=== PATIENT | male | born 1965 | race Caucasian/White ===

== ENCOUNTER 2023-06-01 17:39 | Inpatient (IN) ==
[2023-06-01 18:53] LABS: Albumin Globulin Ratio 1.3 (0.9-2); Albumin Level 4.1 gm/dl (3.4-5.0); BUN Creatinine Ratio 23.6 (10-20); Bilirubin,Total 0.3 mg/dl (0.2-1.0); Calcium 9.1 mg/dl (8.6-10.3); Creatinine Clr Calc Pharmacy 118.8 ml/min; Est GFR (African American) 107.7 ml/min; Est GFR (Non-African American) 92.9 ml/min; Globulin 3.1 gm/dl (2.5-4.0); Hematocrit (blood only) 22.5 % (42.0-52.0); Mean Corpuscular Hemoglobin 39.2 pg (25.0-34.0); Mean Corpuscular Hgb Conc 35.6 g/dL (32.0-36.0); Mean Corpuscular Volume 110.3 fL (80.0-100.0); Mean Platelet Volume 11.4 fL (9.4-12.4); Nucleated RBC # (auto) 0.03 K/uL (0-0.12); Nucleated RBC % (auto) 0.3 %; Platelet Count 95 K/uL (130-400); Potassium 3.7 mmol/L (3.5-5.1); RDW Coefficient of Variation 17.2 % (11.5-14.5); RDW Standard Deviation 68.7 fL (36.4-46.3); Red Blood Count 2.04 M/uL (4.70-6.10); Total Protein 7.2 gm/dl (6.0-8.3); White Blood Count 10.67 K/ul (4.8-10.8)
--- NOTE | 2023-06-01 18:55 | XRay Report ---
XR chest 1V portable HISTORY: Chest pain, nonspecific COMPARISON: None. FINDINGS: There are low lung volumes. No pneumothorax. No pleural effusions. The cardiac silhouette i s normal in size. The lungs are clear. No evidence for pulmonary edema. No acute fractures identified . IMPRESSION: No acute process. ACT 112: Negative or not required by law. Electronically signed by: Mark Meyer M.D. 06/01/2023 6:54 PM
--- NOTE | 2023-06-01 19:43 | History & Physical Report ---
Date of Service June 01, 2023 Assessment & Plan (1) Anemia: (2) Thrombocytopenia: History of Present Illness Primary Care Provider: NO PCP 58 year old male with a past medical history of HLD, HTN, GERD, OA knees B/L left knee memsis right shoulder rotaor gallbladder low blood count 2-3 months ago - PCP -> [facility], [facility] - check up at end of colonscopy 7 years ago -> 10 years cough x few months (lisinpirl) dyenspa, burning pressure on chest exercising fatigued short Allergies Allergy/AdvReac Type Severity Reaction Status Date / Time No Known Allergies Allergy Unverified 05/26/13 10:27 Home Medications Medication Instructions Recorded Confirmed Type acetaminophen 650 mg 650 mg PO DAILY 06/01/23 06/01/23 History tablet,extended release atorvastatin 10 mg tablet 10 mg PO QPM 06/01/23 06/01/23 History lisinopril 10 mg tablet 10 mg PO QAM 06/01/23 06/01/23 History pantoprazole 20 mg tablet,delayed 20 mg PO QAM 06/01/23 06/01/23 History release Past Med/Surg History Social History Smoking Status: Never smoker Feels Safe at Home: Yes Review of Systems Review of Systems: As per above Results & Data Results & Data Vital Signs (Past 12 Hours) Vital Signs Temp Pulse Resp BP Pulse Ox O2 Del Method 06/01/23 18:11 85 06/01/23 18:09 96 Room Air 06/01/23 18:07 84 17 96 Room Air 06/01/23 17:49 36.6 C 88 20 152/72 H 96 Room Air
--- NOTE | 2023-06-01 19:47 | Emergency Department Note ---
History of Present Illness General Chief complaint: Cardiac Assessment Stated complaint: LOW BLOOD COUNT, SOB Time Seen by Provider: 06/01/23 17:57 History of Present Illness Provider complaint: Low blood counts 58-year-old male with history of hypertension hyperlipidemia and GERD presents emergency department stating he was referred here by his primary care physician for low blood counts. Patient reports he has not had any fevers. He reports some fatigue and chest pain with exertion. He also reports dyspnea on exertion. No melena or hematochezia. No hematuria dysuria. No fevers. Home Medications Medication Instructions Recorded Confirmed Type acetaminophen 650 mg 650 mg PO DAILY 06/01/23 06/01/23 History tablet,extended release atorvastatin 10 mg tablet 10 mg PO QPM 06/01/23 06/01/23 History lisinopril 10 mg tablet 10 mg PO QAM 06/01/23 06/01/23 History pantoprazole 20 mg tablet,delayed 20 mg PO QAM 06/01/23 06/01/23 History release Allergies Allergy/AdvReac Type Severity Reaction Status Date / Time No Known Allergies Allergy Unverified 05/26/13 10:27 Past Med/Surg History Medical History GERD (gastroesophageal reflux disease) HLD (hyperlipidemia) HTN (hypertension) No pertinent family history Surgical History (Updated 06/01/23 @ 22:22 by Sandra Mccann DO) H/O lateral meniscus repair of left knee H/O repair of right rotator cuff History of cholecystectomy No pertinent past surgical history Social History (Updated 06/01/23 @ 22:23 by Sandra Mccann DO) Smoking Status: Never smoker Hx Alcohol Use: No Hx Substance Use: No Preferred Language: Mongolian Communication Ability: Effective Levee Superintendent Required: No Beliefs That Will Affect Care: None Current Living Situation: Spouse Current Living Situation Comment: With Other Information That Helps Us Care for You: No Feels Safe at Home: Yes Safety Concerns: Feels Safe At This Time Assistive Devices: None Physical Exam Vital Signs Vital Signs - 24 hr 06/01/23 17:49 06/01/23 18:07 06/01/23 18:09 Temperature 36.6 C Temperature Source Temporal Artery Scan Pulse Rate 88 84 Pulse Rate [Apical] Respiratory Rate 20 17 Respiratory Effort / Characteristics Non-Labored Respiratory Depth Normal Blood Pressure 152/72 H Blood Pressure [Right Arm] Blood Pressure Mean 98 Blood Pressure Mean [Right Arm] Pulse Oximetry 96 96 96 Oxygen Delivery Method Room Air Room Air Room Air Sepsis Recent Fever Within 48 Hours No Sepsis New/Unexplained Change in Mental Status No Sepsis Action Taken by Nursing No Action Required 06/01/23 18:11 06/01/23 19:01 06/01/23 20:15 Temperature Temperature Source Pulse Rate 85 Pulse Rate [Apical] 92 H 86 Respiratory Rate 16 16 Respiratory Effort / Characteristics Respiratory Depth Blood Pressure Blood Pressure [Right Arm] 119/58 L 140/71 Blood Pressure Mean Blood Pressure Mean [Right Arm] 78 94 Pulse Oximetry 98 96 Oxygen Delivery Method Room Air Room Air Sepsis Recent Fever Within 48 Hours Sepsis New/Unexplained Change in Mental Status Sepsis Action Taken by Nursing 06/01/23 21:01 Temperature Temperature Source Pulse Rate Pulse Rate [Apical] 81 Respiratory Rate 16 Respiratory Effort / Characteristics Respiratory Depth Blood Pressure Blood Pressure [Right Arm] 115/79 Blood Pressure Mean Blood Pressure Mean [Right Arm] 91 Pulse Oximetry 96 Oxygen Delivery Method Room Air Sepsis Recent Fever Within 48 Hours Sepsis New/Unexplained Change in Mental Status Sepsis Action Taken by Nursing Physical Exam GENERAL: He is oriented to person, place, and time. He appears well-developed and well-nourished. He does not appear distressed. HENT: Exam performed. - Head: Normocephalic and atraumatic. - Right Ear: External ear normal. No mastoid erythema - Left Ear: External ear normal. No mastoid erythema - Mouth/Throat: The oropharynx is clear and moist. No trismus in the jaw. No dental abscesses or uvula swelling. No oropharyngeal exudate or tonsillar abscesses. EYES: Conjunctivae and EOM are normal. Pupils are equal, round, and reactive to light. Right eye exhibits no discharge. Left eye exhibits no discharge. No scler al icterus. NECK: Normal range of motion. Neck supple. No JVD present. No spinous process tenderness present. No carotid bruit present. No rigidity. No tracheal deviation and normal range of motion present. No Brudzinski's sign and no Kernig's sign noted. CV: Normal rate, regular rhythm, normal heart sounds and intact distal pulses. There is no peripheral edema. Palpable radial pulses bue. PULM/CHEST: Effort normal and breath sounds normal. No respiratory distress. No stridor. He has no wheezes. He has no rales. - Chest Wall: He exhibits no tenderness. ABD: The abdomen is soft. Bowel sounds are normal. He has no distension. No mass is present. There is no tenderness. There is no rebound, no guarding, no Bueno's sign and no tenderness at McBurney's point. Rovsig negative. Rectal: Hemoccult negative. MUSC/SKEL: Normal range of motion. There is no peripheral edema, tenderness or deformity. LYMPH: No cervical adenopathy. NEURO: He is alert and oriented to person, place, and time. He has normal strength. No cranial nerve deficit or sensory deficit. Coordination and gait normal. GCS eye subscore is 4. GCS verbal subscore is 5. GCS motor subscore is 6. Cerebellar tests wnl. SKIN: Skin is warm and dry. He is not diaphoretic. PSYCH: He has a normal mood and affect. Behavior is normal. Judgment and thought content normal. Course Course 1756: The patient was evaluated in room A10. A complete history and physical exam was performed Cardiac monitoring: An order was placed for continuous cardiac monitoring. The monitor shows a rate of 90 with sinus rhythm interpreted by me 1915: Vital signs stable. Patient reports no chest pain or difficulty breathing. Hemoglobin of 8. Stable from outpatient labs which showed hemoglobin of 8.1. Platelet count 95 improved from platelet count of 85 outpatient. EKG chest x-ray troponin negative. Patient will be admitted to the [facility] service for chest pain rule out ACS. Dr. Art's team will be notified 1939: Received a call from Dr. Linda piper. She states they reviewed his blood smear and slides and stated there was one blast and 1 hour ride and she is suspicious that the patient could have myelodysplastic syndrome versus AML. She recommends discussing with hematology oncology. Hematology oncology will be paged. 1949: Spoke with Dr. Pineda on-call hematology oncology. He states that the slides with the blast in our jacobo are suspicious for leukemia until proven otherwise. He recommends transfer to tertiary care center for bone marrow biopsy. 2027: Spoke with Dr. James oncology at [place]. He accepts the patient as a transfer and agrees that the patient needs a bone marrow biopsy to make sure that there is no evidence of AML given the Carmelo rods. The [facility] We will contact [facility] hospitalist to see if the patient can be admitted here until a bed is available at [place]. Patient is in agreement with the plan. 2114: Spoke with Dr. Art [facility] Hospitalist who will admit the patient to his service until a bed of is available at [place]. Medical Decision Making Laboratory Data Attestation: I reviewed the patient's lab results. 06/01/23 18:06 06/01/23 18:06 Lab Results 06/01/23 06/01/23 06/01/23 Range/Units 18:06 18:06 18:06 WBC 10.67 (4.8-10.8) K/ul RBC 2.04 L (4.70-6.10) M/uL Hgb 8.0 L (14.0-18.0) g/dl Hct 22.5 L (42.0-52.0) % MCV 110.3 H (80.0-100.0) fL MCH 39.2 H (25.0-34.0) pg MCHC 35.6 (32.0-36.0) g/dL RDW Std Deviation 68.7 H (36.4-46.3) fL RDW Coeff of Gabe 17.2 H (11.5-14.5) % Plt Count 95 L (130-400) K/uL MPV 11.4 (9.4-12.4) fL Absolute Nucleated RBC 0.03 (0-0.12) K/uL Nucleated RBC % (auto) 0.3 % Neutrophils % (Manual) 12 % Lymphocytes % (Manual) 51 % Monocytes % (Manual) 34 % Eosinophils % (Manual) 2 % Blast Cells % (Manual) 1 % Neutrophils # (Manual) 1.28 L (1.40-6.50) K/uL Total Absolute Neuts 1.28 L (1.4-6.5) K/uL Lymphocytes # (Manual) 5.44 H (1.2-3.4) K/uL Total Abs Lymphocytes 5.44 H (1.2-3.4) K/uL Monocytes # (Manual) 3.63 H (0.11-0.59) K/uL Eosinophils # (Manual) 0.21 (0-0.50) K/uL Blast Cells # (Man) 0.11 H (0-0) K/uL Sodium 140 (136-145) mmol/L Potassium 3.7 (3.5-5.1) mmol/L Chloride 107 (98-107) mmol/L Carbon Dioxide 27 (21-32) mmol/L Anion Gap 6 (3-11) BUN 21 (6-23) mg/dl Creatinine 0.89 (0.6-1.4) mg/dl Est Cr Clr Drug Dosing 118.8 ml/min Est GFR ( Amer) 107.7 ml/min Est GFR (Non-Af Amer) 92.9 ml/min BUN/Creatinine Ratio 23.6 H (10-20) Glucose 134 H (70-99(Fasting)) mg/dl Calcium 9.1 (8.6-10.3) mg/dl Total Bilirubin 0.3 (0.2-1.0) mg/dl AST 15 (13-39) U/L ALT 31 (7-52) U/L Alkaline Phosphatase 78 (34-104) U/L Troponin I High Sens 4.0 (0-20) pg/ml Total Protein 7.2 (6.0-8.3) gm/dl Albumin 4.1 (3.4-5.0) gm/dl Globulin 3.1 (2.5-4.0) gm/dl Albumin/Globulin Ratio 1.3 (0.9-2) Lipase 42 (11-82) U/L SARS-CoV-2, RNA, NAAT (NEGATIVE) Blood Type O Positive Antibody Screen NEGATIVE 06/01/23 Range/Units 20:00 WBC (4.8-10.8) K/ul RBC (4.70-6.10) M/uL Hgb (14.0-18.0) g/dl Hct (42.0-52.0) % MCV (80.0-100.0) fL MCH (25.0-34.0) pg MCHC (32.0-36.0) g/dL RDW Std Deviation (36.4-46.3) fL RDW Coeff of Gabe (11.5-14.5) % Plt Count (130-400) K/uL MPV (9.4-12.4) fL Absolute Nucleated RBC (0-0.12) K/uL Nucleated RBC % (auto) % Neutrophils % (Manual) % Lymphocytes % (Manual) % Monocytes % (Manual) % Eosinophils % (Manual) % Blast Cells % (Manual) % Neutrophils # (Manual) (1.40-6.50) K/uL Total Absolute Neuts (1.4-6.5) K/uL Lymphocytes # (Manual) (1.2-3.4) K/uL Total Abs Lymphocytes (1.2-3.4) K/uL Monocytes # (Manual) (0.11-0.59) K/uL Eosinophils # (Manual) (0-0.50) K/uL Blast Cells # (Man) (0-0) K/uL Sodium (136-145) mmol/L Potassium (3.5-5.1) mmol/L Chloride (98-107) mmol/L Carbon Dioxide (21-32) mmol/L Anion Gap (3-11) BUN (6-23) mg/dl Creatinine (0.6-1.4) mg/dl Est Cr Clr Drug Dosing ml/min Est GFR ( Amer) ml/min Est GFR (Non-Af Amer) ml/min BUN/Creatinine Ratio (10-20) Glucose (70-99(Fasting)) mg/dl Calcium (8.6-10.3) mg/dl Total Bilirubin (0.2-1.0) mg/dl AST (13-39) U/L ALT (7-52) U/L Alkaline Phosphatase (34-104) U/L Troponin I High Sens (0-20) pg/ml Total Protein (6.0-8.3) gm/dl Albumin (3.4-5.0) gm/dl Globulin (2.5-4.0) gm/dl Albumin/Globulin Ratio (0.9-2) Lipase (11-82) U/L SARS-CoV-2, RNA, NAAT NEGATIVE (NEGATIVE) Blood Type Antibody Screen Imaging Data Attestation: I personally reviewed and interpreted this imaging study as follows: My Impression: Chest x-ray negative. Airway clear. No pneumothorax. No consolidation. No cardiomegaly or cephalization.. No free air under the diaphragm. No fractures of the skeletal structures. Radiologist's Impression: Chest X-Ray 06/01/23 17:57 XR chest 1V portable HISTORY: Chest pain, nonspecific COMPARISON: None. FINDINGS: There are low lung volumes. No pneumothorax. No pleural effusions. The cardiac silhouette is normal in size. The lungs are clear. No evidence for pulmonary edema. No acute fractures identified. IMPRESSION: No acute process. ACT 112: Negative or not required by law. Electronically signed by: Mark Meyer M.D. 06/01/2023 6:54 PM ECG Data Attestation: I personally reviewed and interpreted this ECG as follows: Indication: + chest pain Rate (beats per minute): 86 Rhythm: + normal sinus ECG Intervals/blocks: + Normal QRS, + Normal CO and + Normal QT-c ECG ST segments: + Normal ST segments [facility] Narrative 175: The patient was evaluated in room A10. A complete history and physical exam was performed Cardiac monitoring: An order was placed for continuous cardiac monitoring. The monitor shows a rate of 90 with sinus rhythm interpreted by me 191: Vital signs stable. Patient reports no chest pain or difficulty breathing. Hemoglobin of 8. Stable from outpatient labs which showed hemoglobin of 8.1. Platelet count 95 improved from platelet count of 85 outpatient. EKG chest x-ray troponin negative. Patient will be admitted to the [facility] service for chest pain rule out ACS. Dr. Art's team will be notified 1939: Received a call from Dr. Linda piper. She states they reviewed his blood smear and slides and stated there was one blast and 1 hour ride and she is suspicious that the patient could have myelodysplastic syndrome versus AML. She recommends discussing with hematology oncology. Hematology oncology will be paged. 1949: Spoke with Dr. Pineda on-call hematology oncology. He states that the slides with the blast in our jacobo are suspicious for leukemia until proven otherwise. He recommends transfer to tertiary care center for bone marrow biopsy. 2027: Spoke with Dr. James oncology at [place]. He accepts the patient as a transfer and agrees that the patient needs a bone marrow biopsy to make sure that there is no evidence of AML given the Carmelo rods. The transfer center stated that there is likely not to be a bed available tonight. We will contact [facility] Hospitalist to see if the patient can be admitted here until a bed is available at [place]. Patient is in agreement with the plan. 2114: Spoke with Dr. Art [facility] hospitalist who will admit the patient to his service until a bed of is available at [place]. Impression & Plan Chest pain, Anemia, Thrombocytopenia Discharge Plan Visit Data Chief Complaint: Cardiac Assessment Stated Complaint: LOW BLOOD COUNT, SOB ED Provider: Kaveh Vee Discharge Problem: Chest pain, Anemia, Thrombocytopenia Patient Disposition: Admitted As Inpatient Discharge Instructions Interventions: ED Discharge Assessment Last Done: 06/01/23 22:22 Chest pain Qualifiers: Chest pain type: unspecified Qualified Code(s): R07.9 - Chest pain, unspecified
[2023-06-01 20:12] LABS: ALC (manual) 5.44 K/uL (1.2-3.4); ANC (manual) 1.28 K/uL (1.4-6.5); Blast # (manual) 0.11 K/uL (0-0); Blast Cells % (manual) 1 %; Eosinophils # (manual) 0.21 K/uL (0-0.50); Eosinophils % (manual) 2 %; Lymphocytes # (manual) 5.44 K/uL (1.2-3.4); Lymphocytes % (manual) 51 %; Monocytes # (manual) 3.63 K/uL (0.11-0.59); Monocytes % (manual) 34 %; Neutrophils # (manual) 1.28 K/uL (1.40-6.50); Neutrophils % (manual) 12 %
--- NOTE | 2023-06-01 22:07 | History & Physical Report ---
Date of Service June 01, 2023 Assessment & Plan (1) Anemia: Plan: Anemia/Thrombocytopenia - Blood smear concerning for myelodysplastic syndrome versus AML - hemodynamically stable - Plan to transfer to [place] when beds is available - continue to trend CBC Chest Pain/Dyspnea - Hemodynamically stable - EKG without ischemic changes - negative troponin - dyspnea could be secondary to anemia - could consider stress test in the future for exertional chest pain Chronic Cough - could be PABLO-I related; hold lisinopril - CT chest pending GERD - continue PPI HLD - continue statin (2) Thrombocytopenia: (3) HTN (hypertension): (4) HLD (hyperlipidemia): (5) GERD (gastroesophageal reflux disease): (6) Chest pain: (7) Chronic cough: History of Present Illness Primary Care Provider: NO PCP 58 year old male with a past medical history of HTN, HLD, GERD presenting with anemia. Had OP labs this morning and was told to his hemoglobin was low. States that he had a low hemoglobin a few months ago and these were follow up labs for an appointment later this month. Last colonoscopy about 7 years ago was normal. No blood in stool, melena, constipation, diarrhea, abdominal pain. Notes that he bikes regularly, did 4 miles this morning. Denies any active chest pain, does note some chest tightness in the past with exertion. Has noticed some increased dyspnea with exertion. Has a dry cough, that has gotten worse with the poor air quality. ED Course Significant For: Hemoglobin= 8, Platelets= 95, EKG without ischemic changes, troponin negative. CXR negative, bloo smear with blast cell and 1 aurerod. ED discussed with pathology and heme/onc concern for myelodysplastic syndrome versus AML. ED spoke with [facility] and pt is excepted. No beds until tomorrow. Allergies Allergy/AdvReac Type Severity Reaction Status Date / Time No Known Allergies Allergy Unverified 05/26/13 10:27 Home Medications Medication Instructions Recorded Confirmed Type acetaminophen 650 mg 650 mg PO DAILY 06/01/23 06/01/23 History tablet,extended release atorvastatin 10 mg tablet 10 mg PO QPM 06/01/23 06/01/23 History pantoprazole 20 mg tablet,delayed 20 mg PO QAM 06/01/23 06/01/23 History release Past Med/Surg History Medical History GERD (gastroesophageal reflux disease) HLD (hyperlipidemia) HTN (hypertension) No pertinent family history Surgical History (Updated 06/01/23 @ 22:22 by Sandra Mccann DO) H/O lateral meniscus repair of left knee H/O repair of right rotator cuff History of cholecystectomy No pertinent past surgical history Social History (Updated 06/01/23 @ 22:23 by Sandra Mccann DO) Smoking Status: Never smoker Hx Alcohol Use: No Hx Substance Use: No Preferred Language: Khmer Communication Ability: Effective Senior Risk Manager Required: No Beliefs That Will Affect Care: None Current Living Situation: Spouse Current Living Situation Comment: With Other Information That Helps Us Care for You: No Feels Safe at Home: Yes Safety Concerns: Feels Safe At This Time Assistive Devices: None Review of Systems Review of Systems: As per above Physical Exam Physical Exam: Constitutional: well-appearing, no acute distress HEENT: NCAT, no conjunctival injection CV: regular rhythm, no murmur appreciated, extremities well-perfused, no LE edema Resp: CTABL, no wheezes/rales/rhonchi appreciated, no increased work of breathing GI: soft, nondistended, nontender, BS normoactive MSK: no gross deformities appreciated Skin: warm, dry, no rash appreciated Neuro: alert, oriented, no focal neurologic deficit appreciated Results & Data Results & Data Vital Signs (Past 12 Hours) Vital Signs Temp Pulse Pulse Resp BP BP Pulse Ox 06/01/23 21:01 81 16 115/79 96 06/01/23 20:15 86 16 140/71 96 06/01/23 19:01 92 H 16 119/58 L 98 06/01/23 18:11 85 06/01/23 18:09 96 06/01/23 18:07 84 17 96 06/01/23 17:49 36.6 C 88 20 152/72 H 96 O2 Del Method 06/01/23 21:01 Room Air 06/01/23 20:15 Room Air 06/01/23 19:01 Room Air 06/01/23 18:11 06/01/23 18:09 Room Air 06/01/23 18:07 Room Air 06/01/23 17:49 Room Air Supervising Physician Co-Signing Physician Notes Attending addendum: I have physically seen this patient, have supervised the medical residents activities, and agree with the H&P unless as otherwise noted. 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 Chronic cough- Hold lisinopril due to potential for PABLO inhibitor because CT chest pending to assess for possible occult infection Remaining orders and notations as noted Resident Activity Tracking Resident Involvement: Resident Care Provided Care Provided: Adult Hospital Medicine (6) Chest pain Chest pain type: unspecified Qualified Code(s): R07.9 - Chest pain, unspecified
--- NOTE | 2023-06-01 23:02 | CT Scan Report ---
CT SCAN OF THE CHEST WITHOUT IV CONTRAST CLINICAL HISTORY: Chronic cough COMPARISON STUDY: Chest x-ray dated 06/01/2023. TECHNIQUE: CT scan of the thorax was performed from the thoracic inlet to the upper abdomen. Images are reviewed in the axial, sagittal, and coronal planes. IV contrast was not administered for this ex amination as per the referring clinician. A dose lowering technique was utilized adhering to the estela lexples of BAO. CT DOSE: 1006.75 mGy.cm FINDINGS: Thyroid: Imaged portions of the thyroid gland are normal in size and attenuation. Thoracic aorta: The thoracic aorta is normal in caliber and demonstrates standard 3-vessel arch anato my. Heart: The heart is top normal in size and without pericardial effusion. There are scattered coronary artery calcifications. Lungs and pleural spaces: There is no airspace consolidation or pleural effusion. Scattered calcified granulomas are observed. The trachea and central airways are clear. A 6 mm pleural-based nodule is s een in the right middle lobe along the minor fissure on image #114. A 4 mm right lower lobe nodule is seen on image #202, and a 2 mm right lower lobe nodule as seen on image #156. Mediastinum: There is no mediastinal lymphadenopathy. Carmen: Not well assessed without IV contrast. Axillae: There is no axillary lymphadenopathy. Upper abdomen: Cholecystectomy clips are noted. Partially visualized upper abdominal viscera is withi n normal limits. Skeletal structures: No lytic or blastic bony lesions are seen. IMPRESSION: 1. There is no airspace consolidation or pleural effusion. 2. Scattered low suspicion pulmonary and pleural-based nodules measure up to 6 mm. If warranted these can be followed as per the Fleischner criteria. See below. 3. No adenopathy is seen. Please refer to below summary of Fleischner criteria recommendations for follow-up of incidental CT n odules (Faheem Mackey, Guidelines for management of small pulmonary nodules detected on CT scans: A sta tement from the Fleischner Society, Radiology 237: [phone].) SOLID NODULES Solitary nodule size: <6 mm * low risk patients: no follow-up needed * high risk patients: optional CT at 12 months Solitary nodule size: 6-8 mm * low risk patients: follow-up at 6-12 months, then consider further follow-up at 18-24 months * high risk patients: initial follow-up CT at 6-12 months and then at 18-24 months if no change Solitary nodule size: >8 mm * either low or high risk patients - consider follow-up CT at 3 months, and/or CT-PET, and/or biopsy Multiple nodules size: <6 mm * low risk patients: no routine follow-up * high risk patients: optional CT at 12 months Multiple nodules size: 6-8 mm * low risk patients: follow-up at 3-6 months, then consider further follow-up at 18-24 months * high risk patients: follow-up at 3-6 months, then at 18-24 months if no change Multiple nodules size: >8 mm * low risk patients: follow-up at 3-6 months, then consider further follow-up at 18-24 months * high risk patients: follow-up at 3-6 months, then at 18-24 months if no change Note: newly detected indeterminate nodule in persons 35 years of age or older. * low risk patients: minimal or absent history of smoking and/or other known risk factors * high risk patients: history of smoking or of other known risk factors (e.g. first degree relative with lung cancer, or exposure to asbestos, radon, uranium) * if a nodule up to 8 mm is partly solid or is ground glass further follow-up is required after 24 m onths to exclude possible slow growing adenocarcinoma (KILLIAN) SUBSOLID NODULES Solitary pure ground-glass nodule * nodule size <6 mm - no CT follow-up required * nodule size >=6 mm - follow-up CT at 6-12 months, then every 2 years until 5 years Solitary part-solid nodule * nodule size <6 mm - no CT follow-up required * nodule size >=6 mm - follow-up CT at 3-6 months. If unchanged, and solid component remains <6 mm, then annual follow-up for 5 years Multiple subsolid nodules * nodule size <6 mm - follow-up CT at 3-6 months, consider further follow-up at 2 and 4 years if sta ble * nodule size >=6 mm - follow-up CT at 3-6 months, subsequent management based on the most suspiciou s nodule(s) ACT 112: Negative or not required by law. Electronically signed by: yT Lange M.D. 06/01/2023 11:00 PM
--- NOTE | 2023-06-02 07:12 | Electrocardiogram Report ---
Test Reason : Blood Pressure : / mmHG Vent. Rate : 086 BPM Atrial Rate : 086 BPM P-R Int : 188 ms QRS Dur : 096 ms QT Int : 372 ms P-R-T Axes : 032 001 004 degrees QTc Int : 445 ms Normal sinus rhythm Normal ECG When compared with ECG of 23-MAY-2013 12:31, Vent. rate has increased BY 31 BPM Confirmed by Rishabh Redman ([id number]) on 06/02/2023 7:11:35 AM Referred By: REFERRED SELF Confirmed By:Josafat Redman
--- NOTE | 2023-06-02 07:34 | Hospitalist Progress Note ---
Date of Service June 02, 2023 Assessment & Plan (1) Anemia: Plan: Junior Powell is a 58 year-old male with past medical history of hypertension, hyperlipidemia, and GERD who presented to the ED after outpatient blood work revealed a low hemoglobin in addition to symptoms of chest pain and dyspnea. Anemia/Thrombocytopenia -Blood smear concerning for myelodysplastic syndrome versus AML -Hemodynamically stable. Hgb 8.0 on arrival, Hgb 7.9 this a.m. -Patient accepted to transfer to [facility] (accepting physician- Dr. James, oncology) when bed is available. -Continue to trend CBC Chest Pain/Dyspnea -Hemodynamically stable -EKG without ischemic changes, negative troponin. CT chest as below. -Dyspnea could be secondary to anemia. Consider stress test in the future for exertional chest pain Chronic Cough -Could be PABLO-I related; will hold lisinopril -CT chest: No airspace consolidation or pleural effusion. Scattered low suspicion pulmonary and pleural-based nodules measure up to 6 mm. No adenopathy is seen. Hypertension -Holding Lisinopril as above due to ongoing chronic cough -BP with systolic of 160s-170s. At this point do not plan to add new antihypertensive as patient is asymptomatic and overtreatment could cause additional concerns -Would consider switching from Lisinopril to ARB medication as outpatient GERD -Continue PPI HLD -Continue statin (2) Thrombocytopenia: (3) HTN (hypertension): (4) HLD (hyperlipidemia): (5) GERD (gastroesophageal reflux disease): (6) Chest pain: (7) Chronic cough: Admission and Anticipated Discharge Date Admission Date: June 01, 2023 Subjective Patient seen and examined at bedside. No acute events overnight, patient states he barely slept. He states he feels ok today, notes that he came to the ED yesterday after outpatient labs showed a low hemoglobin. He recalls that he has felt more fatigued, short of breath with minimal activity over the past few weeks to months. He enjoys hiking, bike riding, etc. and those activities now make him more short of breath. He denies lightheadedness/presyncope except when moving from laying flat to standing and this usually resolves quickly. He denies any dark or bloody bowel movements. Notes that he checks his BP at home and it is typically around 140/70s, although it tends to be "a bit higher" when he is anxious at a doctor's appointment. He notes an ongoing cough, has been on Lisinopril for an extended period. He denies any current headache or visual changes. Review of Systems Review of Systems: As per above Physical Exam Constitutional: WD/WN, vitals as above Eyes: + anicteric sclerae ENMT: Ears: no external ear abnormality Nose: no external nose abnormality Moist mucous membranes Respiratory: normal respiratory effort, lungs clear to auscultation Cardiovascular: Rate/Rhythm: regular rate and regular rhythm No lower extremity edema Gastrointestinal (Abdomen): Abdomen soft, nontender and nondistended. Skin: no rashes, warm and dry Neurologic: moves all extremities Psychiatric: A+Ox3, euthymic affect Results & Data Results & Data Vital Signs (Past 12 Hours) Vital Signs Temp Pulse Pulse Resp BP Pulse Ox O2 Del Method 06/02/23 04:00 36.7 C 79 18 160/83 H 97 Room Air 06/01/23 22:50 82 06/01/23 22:45 37.1 C 80 20 150/78 H 97 Room Air 06/01/23 22:22 84 18 06/01/23 21:01 81 16 115/79 96 Room Air 06/01/23 20:15 86 16 140/71 96 Room Air Diagnostic Findings Chest X-Ray 06/01/23 17:57 XR chest 1V portable HISTORY: Chest pain, nonspecific COMPARISON: None. FINDINGS: There are low lung volumes. No pneumothorax. No pleural effusions. The cardiac silhouette is normal in size. The lungs are clear. No evidence for pulmonary edema. No acute fractures identified. IMPRESSION: No acute process. ACT 112: Negative or not required by law. Electronically signed by: Mark Meyer M.D. 06/01/2023 6:[address] 06/01/23 21:33 CT SCAN OF THE CHEST WITHOUT IV CONTRAST CLINICAL HISTORY: Chronic cough COMPARISON STUDY: Chest x-ray dated 06/01/2023. TECHNIQUE: CT scan of the thorax was performed from the thoracic inlet to the upper abdomen. Images are reviewed in the axial, sagittal, and coronal planes. IV contrast was not administered for this examination as per the referring clinician. A dose lowering technique was utilized adhering to the principles of ALARA. CT DOSE: 1006.75 mGy.cm FINDINGS: Thyroid: Imaged portions of the thyroid gland are normal in size and attenuation. Thoracic aorta: The thoracic aorta is normal in caliber and demonstrates standard 3-vessel arch anatomy. Heart: The heart is top normal in size and without pericardial effusion. There are scattered coronary artery calcifications. Lungs and pleural spaces: There is no airspace consolidation or pleural effusion. Scattered calcified granulomas are observed. The trachea and central airways are clear. A 6 mm pleural-based nodule is seen in the right middle lobe along the minor fissure on image #114. A 4 mm right lower lobe nodule is seen on image #202, and a 2 mm right lower lobe nodule as seen on image #156. Mediastinum: There is no mediastinal lymphadenopathy. Carmen: Not well assessed without IV contrast. Axillae: There is no axillary lymphadenopathy. Upper abdomen: Cholecystectomy clips are noted. Partially visualized upper abdominal viscera is within normal limits. Skeletal structures: No lytic or blastic bony lesions are seen. IMPRESSION: 1. There is no airspace consolidation or pleural effusion. 2. Scattered low suspicion pulmonary and pleural-based nodules measure up to 6 mm. If warranted these can be followed as per the Fleischner criteria. See below. 3. No adenopathy is seen. Please refer to below summary of Fleischner criteria recommendations for follow- up of incidental CT nodules (Faheem Mackey, Guidelines for management of small pulmonary nodules detected on CT scans: A statement from the Fleischner Society, Radiology 237: [phone].) SOLID NODULES Solitary nodule size: <6 mm * low risk patients: no follow-up needed * high risk patients: optional CT at 12 months Solitary nodule size: 6-8 mm * low risk patients: follow-up at 6-12 months, then consider further follow-up at 18-24 months * high risk patients: initial follow-up CT at 6-12 months and then at 18-24 months if no change Solitary nodule size: >8 mm * either low or high risk patients - consider follow-up CT at 3 months, and/or CT-PET, and/or biopsy Multiple nodules size: <6 mm * low risk patients: no routine follow-up * high risk patients: optional CT at 12 months Multiple nodules size: 6-8 mm * low risk patients: follow-up at 3-6 months, then consider further follow-up at 18-24 months * high risk patients: follow-up at 3-6 months, then at 18-24 months if no change Multiple nodules size: >8 mm * low risk patients: follow-up at 3-6 months, then consider further follow-up at 18-24 months * high risk patients: follow-up at 3-6 months, then at 18-24 months if no change Note: newly detected indeterminate nodule in persons 35 years of age or older. * low risk patients: minimal or absent history of smoking and/or other known risk factors * high risk patients: history of smoking or of other known risk factors (e.g. first degree relative with lung cancer, or exposure to asbestos, radon, uranium) * if a nodule up to 8 mm is partly solid or is ground glass further follow-up is required after 24 months to exclude possible slow growing adenocarcinoma (KILLIAN) SUBSOLID NODULES Solitary pure ground-glass nodule * nodule size <6 mm - no CT follow-up required * nodule size >=6 mm - follow-up CT at 6-12 months, then every 2 years until 5 years Solitary part-solid nodule * nodule size <6 mm - no CT follow-up required * nodule size >=6 mm - follow-up CT at 3-6 months. If unchanged, and solid component remains <6 mm, then annual follow-up for 5 years Multiple subsolid nodules * nodule size <6 mm - follow-up CT at 3-6 months, consider further follow-up at 2 and 4 years if stable * nodule size >=6 mm - follow-up CT at 3-6 months, subsequent management based on the most suspicious nodule(s) ACT 112: Negative or not required by law. Electronically signed by: Ty Lange M.D. 06/01/2023 11:00 PM Resident Activity Tracking Resident Involvement: Resident Care Provided Care Provided: Adult [facility] (6) Chest pain Chest pain type: unspecified Qualified Code(s): R07.9 - Chest pain, unspecified
[2023-06-02 08:09] LABS: BUN Creatinine Ratio 20.2 (10-20); Calcium 8.9 mg/dl (8.6-10.3); Creatinine Clr Calc Pharmacy 126.5 ml/min; Est GFR (African American) 110.3 ml/min; Est GFR (Non-African American) 95.2 ml/min; Potassium 3.9 mmol/L (3.5-5.1)
[2023-06-02 08:30] LABS: ALC (manual) 5.31 K/uL (1.2-3.4); ANC (manual) 1.94 K/uL (1.4-6.5); Blast Cells % (manual) 1 %; Eosinophils % (manual) 1 %; Hematocrit (blood only) 22.4 % (42.0-52.0); Hemoglobin 7.9 g/dl (14.0-18.0); Lymphocytes # (manual) 5.31 K/uL (1.2-3.4); Lymphocytes % (manual) 52 %; Mean Corpuscular Hemoglobin 38.3 pg (25.0-34.0); Mean Corpuscular Hgb Conc 35.3 g/dL (32.0-36.0); Mean Corpuscular Volume 108.7 fL (80.0-100.0); Mean Platelet Volume 11.3 fL (9.4-12.4); Monocytes # (manual) 2.86 K/uL (0.11-0.59); Monocytes % (manual) 28 %; Neutrophils # (manual) 1.94 K/uL (1.40-6.50); Neutrophils % (manual) 19 %; Platelet Count 93 K/uL (130-400); RBC Morphology Unremarkable; RDW Coefficient of Variation 17.2 % (11.5-14.5); RDW Standard Deviation 67.3 fL (36.4-46.3); Red Blood Count 2.06 M/uL (4.70-6.10)
[2023-06-02] MEDS ORDERED: ACETAMINOPHEN 325 MG TAB PO SCH (09:00)
[2023-06-02] MEDS ORDERED: PANTOprazole 40 MG TAB PO SCH (09:00)
[2023-06-02] MEDS ORDERED: oxyCODONE HCL IR 5 MG TAB (IMMEDIATE RELEASE) PO STA (15:14)
--- NOTE | 2023-06-02 16:30 | Discharge Summary ---
Date of Service June 02, 2023 Admission HPI Per Admitting Provider 58 year old male with a past medical history of HTN, HLD, GERD presenting with anemia. Had OP labs this morning and was told to his hemoglobin was low. States that he had a low hemoglobin a few months ago and these were follow up labs for an appointment later this month. Last colonoscopy about 7 years ago was normal. No blood in stool, melena, constipation, diarrhea, abdominal pain. Notes that he bikes regularly, did 4 miles this morning. Denies any active chest pain, does note some chest tightness in the past with exertion. Has noticed some increased dyspnea with exertion. Has a dry cough, that has gotten worse with the poor air quality. ED Course Significant For: Hemoglobin= 8, Platelets= 95, EKG without ischemic changes, troponin negative. CXR negative, bloo smear with blast cell and 1 aurerod. ED discussed with pathology and heme/onc concern for myelodysplastic syndrome versus AML. ED spoke with [facility] and pt is excepted. No beds until tomorrow. Admission Exam Per Admitting Provider Constitutional: well-appearing, no acute distress HEENT: NCAT, no conjunctival injection CV: regular rhythm, no murmur appreciated, extremities well-perfused, no LE edema Resp: CTABL, no wheezes/rales/rhonchi appreciated, no increased work of breathing GI: soft, nondistended, nontender, BS normoactive MSK: no gross deformities appreciated Skin: warm, dry, no rash appreciated Neuro: alert, oriented, no focal neurologic deficit appreciated Principal Diagnosis Anemia, Thrombocytopenia- Myelodysplastic Syndrome vs. AML Discharge Exam Constitutional WD/WN, vitals as above Eyes + anicteric sclerae ENMT Ears: no external ear abnormality Nose: no external nose abnormality Respiratory normal respiratory effort, lungs clear to auscultation Cardiovascular Rate/Rhythm: regular rate and regular rhythm Skin no rashes, warm and dry Neurologic CN's II-XI intact bilaterally and moves all extremities Psychiatric A+Ox3, euthymic affect Discharge Data Allergies Allergy/AdvReac Type Severity Reaction Status Date / Time No Known Allergies Allergy Unverified 05/26/13 10:27 Consultations 06/01/23 19:17 ED Decision to Admit Stat Procedures Performed 06/02/23 06/02/23 06/02/23 Range/Units 07:03 07:03 07:03 WBC 10.21 (4.8-10.8) K/ul RBC 2.06 L (4.70-6.10) M/uL Hgb 7.9 L (14.0-18.0) g/dl Hct 22.4 L (42.0-52.0) % MCV 108.7 H (80.0-100.0) fL MCH 38.3 H (25.0-34.0) pg MCHC 35.3 (32.0-36.0) g/dL RDW Std Deviation 67.3 H (36.4-46.3) fL RDW Coeff of Gabe 17.2 H (11.5-14.5) % Plt Count 93 L (130-400) K/uL MPV 11.3 (9.4-12.4) fL Absolute Nucleated RBC (0-0.12) K/uL Nucleated RBC % (auto) % Neutrophils % (Manual) 19 % Lymphocytes % (Manual) 52 % Monocytes % (Manual) 28 % Eosinophils % (Manual) 1 % Blast Cells % (Manual) 1 % Neutrophils # (Manual) 1.94 (1.40-6.50) K/uL Total Absolute Neuts 1.94 (1.4-6.5) K/uL Lymphocytes # (Manual) 5.31 H (1.2-3.4) K/uL Total Abs Lymphocytes 5.31 H (1.2-3.4) K/uL Monocytes # (Manual) 2.86 H (0.11-0.59) K/uL Eosinophils # (Manual) 0.10 (0-0.50) K/uL Blast Cells # (Man) 0.10 H (0-0) K/uL Blood Smear Review RBC Morphology Unremarkable Sodium 136 (136-145) mmol/L Potassium 3.9 (3.5-5.1) mmol/L Chloride 104 (98-107) mmol/L Carbon Dioxide 27 (21-32) mmol/L Anion Gap 5 (3-11) BUN 17 (6-23) mg/dl Creatinine 0.84 (0.6-1.4) mg/dl Est Cr Clr Drug Dosing 126.5 ml/min Est GFR ( Amer) 110.3 ml/min Est GFR (Non-Af Amer) 95.2 ml/min BUN/Creatinine Ratio 20.2 H (10-20) Glucose 106 H (70-99(Fasting)) mg/dl Calcium 8.9 (8.6-10.3) mg/dl Total Bilirubin (0.2-1.0) mg/dl AST (13-39) U/L ALT (7-52) U/L Alkaline Phosphatase (34-104) U/L Troponin I High Sens (0-20) pg/ml Total Protein (6.0-8.3) gm/dl Albumin (3.4-5.0) gm/dl Globulin (2.5-4.0) gm/dl Albumin/Globulin Ratio (0.9-2) Lipase (11-82) U/L Hepatitis C Ab (EIA) Pending SARS-CoV-2, RNA, NAAT (NEGATIVE) Blood Type Antibody Screen 06/01/23 06/01/23 06/01/23 Range/Units 20:00 18:06 18:06 WBC 10.67 (4.8-10.8) K/ul RBC 2.04 L (4.70-6.10) M/uL Hgb 8.0 L (14.0-18.0) g/dl Hct 22.5 L (42.0-52.0) % MCV 110.3 H (80.0-100.0) fL MCH 39.2 H (25.0-34.0) pg MCHC 35.6 (32.0-36.0) g/dL RDW Std Deviation 68.7 H (36.4-46.3) fL RDW Coeff of Gabe 17.2 H (11.5-14.5) % Plt Count 95 L (130-400) K/uL MPV 11.4 (9.4-12.4) fL Absolute Nucleated RBC 0.03 (0-0.12) K/uL Nucleated RBC % (auto) 0.3 % Neutrophils % (Manual) 12 % Lymphocytes % (Manual) 51 % Monocytes % (Manual) 34 % Eosinophils % (Manual) 2 % Blast Cells % (Manual) 1 % Neutrophils # (Manual) 1.28 L (1.40-6.50) K/uL Total Absolute Neuts 1.28 L (1.4-6.5) K/uL Lymphocytes # (Manual) 5.44 H (1.2-3.4) K/uL Total Abs Lymphocytes 5.44 H (1.2-3.4) K/uL Monocytes # (Manual) 3.63 H (0.11-0.59) K/uL Eosinophils # (Manual) 0.21 (0-0.50) K/uL Blast Cells # (Man) 0.11 H (0-0) K/uL Blood Smear Review Pending RBC Morphology Sodium 140 (136-145) mmol/L Potassium 3.7 (3.5-5.1) mmol/L Chloride 107 (98-107) mmol/L Carbon Dioxide 27 (21-32) mmol/L Anion Gap 6 (3-11) BUN 21 (6-23) mg/dl Creatinine 0.89 (0.6-1.4) mg/dl Est Cr Clr Drug Dosing 118.8 ml/min Est GFR ( Amer) 107.7 ml/min Est GFR (Non-Af Amer) 92.9 ml/min BUN/Creatinine Ratio 23.6 H (10-20) Glucose 134 H (70-99(Fasting)) mg/dl Calcium 9.1 (8.6-10.3) mg/dl Total Bilirubin 0.3 (0.2-1.0) mg/dl AST 15 (13-39) U/L ALT 31 (7-52) U/L Alkaline Phosphatase 78 (34-104) U/L Troponin I High Sens 4.0 (0-20) pg/ml Total Protein 7.2 (6.0-8.3) gm/dl Albumin 4.1 (3.4-5.0) gm/dl Globulin 3.1 (2.5-4.0) gm/dl Albumin/Globulin Ratio 1.3 (0.9-2) Lipase 42 (11-82) U/L Hepatitis C Ab (EIA) SARS-CoV-2, RNA, NAAT NEGATIVE (NEGATIVE) Blood Type Antibody Screen 06/01/23 Range/Units 18:06 WBC (4.8-10.8) K/ul RBC (4.70-6.10) M/uL Hgb (14.0-18.0) g/dl Hct (42.0-52.0) % MCV (80.0-100.0) fL MCH (25.0-34.0) pg MCHC (32.0-36.0) g/dL RDW Std Deviation (36.4-46.3) fL RDW Coeff of Gabe (11.5-14.5) % Plt Count (130-400) K/uL MPV (9.4-12.4) fL Absolute Nucleated RBC (0-0.12) K/uL Nucleated RBC % (auto) % Neutrophils % (Manual) % Lymphocytes % (Manual) % Monocytes % (Manual) % Eosinophils % (Manual) % Blast Cells % (Manual) % Neutrophils # (Manual) (1.40-6.50) K/uL Total Absolute Neuts (1.4-6.5) K/uL Lymphocytes # (Manual) (1.2-3.4) K/uL Total Abs Lymphocytes (1.2-3.4) K/uL Monocytes # (Manual) (0.11-0.59) K/uL Eosinophils # (Manual) (0-0.50) K/uL Blast Cells # (Man) (0-0) K/uL Blood Smear Review RBC Morphology Sodium (136-145) mmol/L Potassium (3.5-5.1) mmol/L Chloride (98-107) mmol/L Carbon Dioxide (21-32) mmol/L Anion Gap (3-11) BUN (6-23) mg/dl Creatinine (0.6-1.4) mg/dl Est Cr Clr Drug Dosing ml/min Est GFR ( Amer) ml/min Est GFR (Non-Af Amer) ml/min BUN/Creatinine Ratio (10-20) Glucose (70-99(Fasting)) mg/dl Calcium (8.6-10.3) mg/dl Total Bilirubin (0.2-1.0) mg/dl AST (13-39) U/L ALT (7-52) U/L Alkaline Phosphatase (34-104) U/L Troponin I High Sens (0-20) pg/ml Total Protein (6.0-8.3) gm/dl Albumin (3.4-5.0) gm/dl Globulin (2.5-4.0) gm/dl Albumin/Globulin Ratio (0.9-2) Lipase (11-82) U/L Hepatitis C Ab (EIA) SARS-CoV-2, RNA, NAAT (NEGATIVE) Blood Type O Positive Antibody Screen NEGATIVE Ordered Studies 06/01/23 21:33 CT chest without contrast [CT chest diagnostic wo con] Stat Chest X-Ray 06/01/23 17:57 XR chest 1V portable HISTORY: Chest pain, nonspecific COMPARISON: None. FINDINGS: There are low lung volumes. No pneumothorax. No pleural effusions. The cardiac silhouette is normal in size. The lungs are clear. No evidence for pulmonary edema. No acute fractures identified. IMPRESSION: No acute process. ACT 112: Negative or not required by law. Electronically signed by: Mark Meyer M.D. 06/01/2023 6:[address] 06/01/23 21:33 CT SCAN OF THE CHEST WITHOUT IV CONTRAST CLINICAL HISTORY: Chronic cough COMPARISON STUDY: Chest x-ray dated 06/01/2023. TECHNIQUE: CT scan of the thorax was performed from the thoracic inlet to the upper abdomen. Images are reviewed in the axial, sagittal, and coronal planes. IV contrast was not administered for this examination as per the referring clinician. A dose lowering technique was utilized adhering to the principles of ALARA. CT DOSE: 1006.75 mGy.cm FINDINGS: Thyroid: Imaged portions of the thyroid gland are normal in size and attenuation. Thoracic aorta: The thoracic aorta is normal in caliber and demonstrates standard 3-vessel arch anatomy. Heart: The heart is top normal in size and without pericardial effusion. There are scattered coronary artery calcifications. Lungs and pleural spaces: There is no airspace consolidation or pleural effusion. Scattered calcified granulomas are observed. The trachea and central airways are clear. A 6 mm pleural-based nodule is seen in the right middle lobe along the minor fissure on image #114. A 4 mm right lower lobe nodule is seen on image #202, and a 2 mm right lower lobe nodule as seen on image #156. Mediastinum: There is no mediastinal lymphadenopathy. Carmen: Not well assessed without IV contrast. Axillae: There is no axillary lymphadenopathy. Upper abdomen: Cholecystectomy clips are noted. Partially visualized upper abdominal viscera is within normal limits. Skeletal structures: No lytic or blastic bony lesions are seen. IMPRESSION: 1. There is no airspace consolidation or pleural effusion. 2. Scattered low suspicion pulmonary and pleural-based nodules measure up to 6 mm. If warranted these can be followed as per the Fleischner criteria. See below. 3. No adenopathy is seen. Please refer to below summary of Fleischner criteria recommendations for follow- up of incidental CT nodules (Faheem Mcakey, Guidelines for management of small pulmonary nodules detected on CT scans: A statement from the Fleischner Society, Radiology 237: [phone].) SOLID NODULES Solitary nodule size: <6 mm * low risk patients: no follow-up needed * high risk patients: optional CT at 12 months Solitary nodule size: 6-8 mm * low risk patients: follow-up at 6-12 months, then consider further follow-up at 18-24 months * high risk patients: initial follow-up CT at 6-12 months and then at 18-24 months if no change Solitary nodule size: >8 mm * either low or high risk patients - consider follow-up CT at 3 months, and/or CT-PET, and/or biopsy Multiple nodules size: <6 mm * low risk patients: no routine follow-up * high risk patients: optional CT at 12 months Multiple nodules size: 6-8 mm * low risk patients: follow-up at 3-6 months, then consider further follow-up at 18-24 months * high risk patients: follow-up at 3-6 months, then at 18-24 months if no change Multiple nodules size: >8 mm * low risk patients: follow-up at 3-6 months, then consider further follow-up at 18-24 months * high risk patients: follow-up at 3-6 months, then at 18-24 months if no change Note: newly detected indeterminate nodule in persons 35 years of age or older. * low risk patients: minimal or absent history of smoking and/or other known risk factors * high risk patients: history of smoking or of other known risk factors (e.g. first degree relative with lung cancer, or exposure to asbestos, radon, uranium) * if a nodule up to 8 mm is partly solid or is ground glass further follow-up is required after 24 months to exclude possible slow growing adenocarcinoma (KILLIAN) SUBSOLID NODULES Solitary pure ground-glass nodule * nodule size <6 mm - no CT follow-up required * nodule size >=6 mm - follow-up CT at 6-12 months, then every 2 years until 5 years Solitary part-solid nodule * nodule size <6 mm - no CT follow-up required * nodule size >=6 mm - follow-up CT at 3-6 months. If unchanged, and solid component remains <6 mm, then annual follow-up for 5 years Multiple subsolid nodules * nodule size <6 mm - follow-up CT at 3-6 months, consider further follow-up at 2 and 4 years if stable * nodule size >=6 mm - follow-up CT at 3-6 months, subsequent management based on the most suspicious nodule(s) ACT 112: Negative or not required by law. Electronically signed by: Ty Lange M.D. 06/01/2023 11:00 PM Hospital Course (1) Chronic cough: (2) Chest pain: (3) GERD (gastroesophageal reflux disease): (4) HLD (hyperlipidemia): (5) Thrombocytopenia: (6) HTN (hypertension): (7) Anemia: Plan Junior Powell is a 58 year-old male with past medical history of hypertension, hyperlipidemia, and GERD who presented to the ED after outpatient blood work revealed a low hemoglobin in addition to symptoms of chest pain and dyspnea. Anemia/Thrombocytopenia Pathology reviewed blood smear/slides and stated there was a blast with one Carmelo jacobo- suspicious the patient could have myelodysplastic syndrome vs AML. She recommends discussing with hematology oncology. [place]. Mckeon [place] was contacted and agreed that these findings were suspicious for leukemia until proven otherwise.He recommended transfer to tertiary care center for bone marrow biopsy. Patient accepted as a transfer by Dr. James (oncology, [place]) and agrees that the patient needs a bone marrow biopsy to make sure that there is no evidence of AML given the Carmelo rods. -Hemodynamically stable. Hgb 8.0 on arrival, Hgb 7.9 this a.m. Chest Pain/Dyspnea -Hemodynamically stable -EKG without ischemic changes, negative troponin. CT chest as below. -Dyspnea could be secondary to anemia. Consider stress test in the future for exertional chest pain Chronic Cough -Could be PABLO-I related; will hold lisinopril -CT chest: No airspace consolidation or pleural effusion. Scattered low suspicion pulmonary and pleural-based nodules measure up to 6 mm. No adenopathy is seen. Hypertension -Holding Lisinopril as above due to ongoing chronic cough -Patient hypertensive with peak reaching 193/76, neuro exam WNL and no visual changes/confusion -Patient notes he hasn't slept in over a day and has what seems to be a tension headache, strong suspicion this is further elevating BP -Refrained from treating current BP due to concern of possible rebound effects -Would consider switching from Lisinopril to ARB medication as outpatient GERD -Continue pantoprazole HLD -Continue statin Total Time Total Time Spent Total Time Spent (In Minutes): .<30 Discharge Plan Discharge Items Patient Disposition: Transfer Acute Care Hospital Reason For Visit: ANEMIA Discharge Diagnosis: Anemia, Concern of Myelodysplastic Syndrome vs. AML Activity: Per Instructions section Non-emergency contact: Primary Care Provider Call non-emergency contact if: you have any medication questions and your symptoms worsen Follow-up/Referrals: PCP,NO [Primary Care Provider] - Diet: Regular Addtl Attending Provider Instructions: Junior Powell is a 58 year-old male with past medical history of hypertension, hyperlipidemia, and GERD who presented to the ED after outpatient blood work revealed a low hemoglobin in addition to symptoms of chest pain and dyspnea. Anemia/Thrombocytopenia Pathology reviewed blood smear/slides and stated there was a blast with one Carmelo jacobo- suspicious the patient could have myelodysplastic syndrome vs AML. She recommends discussing with hematology oncology. Dr. Mcekon ([facility] [place] was contacted and agreed that these findings were suspicious for leukemia until proven otherwise.He recommended transfer to tertiary care center for bone marrow biopsy. Patient accepted as a transfer by Dr. James (oncology, [place]) and agrees that the patient needs a bone marrow biopsy to make sure that there is no evidence of AML given the Carmelo rods. -Hemodynamically stable. Hgb 8.0 on arrival, Hgb 7.9 this a.m. Chest Pain/Dyspnea -Hemodynamically stable -EKG without ischemic changes, negative troponin. CT chest as below. -Dyspnea could be secondary to anemia. Consider stress test in the future for e xertional chest pain Chronic Cough -Could be PABLO-I related; will hold lisinopril -CT chest: No airspace consolidation or pleural effusion. Scattered low suspicion pulmonary and pleural-based nodules measure up to 6 mm. No adenopathy is seen. Hypertension -Holding Lisinopril as above due to ongoing chronic cough -Patient hypertensive with peak reaching 193/76, neuro exam WNL and no visual changes/confusion -Patient notes he hasn't slept in over a day and has what seems to be a tension headache, strong suspicion this is further elevating BP -Refrained from treating current BP due to concern of possible rebound effects -Would consider switching from Lisinopril to ARB medication as outpatient GERD -Continue pantoprazole HLD -Continue statin Pending Studies at Discharge: No Stand-Alone Forms: My [facility] Skilled Items Patient informed of condition?: Yes DNR: No Discharge Level of Care: Other Communicable Disease: No Discharge Prognosis: Stable Lines: Peripheral IV Urinary Catheter: No Medications and DC Order Prescriptions: Continued atorvastatin 10 mg tablet 10 mg PO QPM acetaminophen 650 mg Tablet Extended Release 650 mg PO DAILY pantoprazole 20 mg tablet,delayed release (DR/EC) 20 mg PO QAM Discontinued lisinopril 10 mg tablet 10 mg PO QAM Discharge Orders: Discharge Order (Routine); Ordered 06/02/23 Ordered By: Sandrine Donaldson Admission Data Admit Date/Time: 06/01/23 21:06 Attending Provider: Piyush Celaya Admit Provider: Sandra Mccann Primary Care Provider: PCP,NO Other Providers: Chris Smith Other Interventions: Discharge Summary Assessment (RN) Last Done: 06/02/23 17:58 Supervising Physician Co-Signing Physician Notes I personally examined the patient and verified all hernandez points of history and exam, discussed case, and agree with decision making with Dr Donaldson Feeling okay. Awaiting transfer. Discussed reasons for transfer rather than outpatient follow-up. Discussed possible courses of caremaking it clear that when he arrives in [place], hematology there will have a much better outline of his expected course and what I am giving him. Later blood pressure was up some, he had a dull headache but no blurred vision or altered mental status. Vitals noted, in general he is awake and alert pleasant no distress. HEENT normocephalic atraumatic mucous membranes moist. Breathing unlabored no accessory muscle use good effort. Skin shows no rashes no pallor or icterus. Neuro without focal deficits. Anemia, thrombocytopenia, apparent blast on smearfor transfer for tertiary hematology. Elevated blood pressurealmost certainly reactive to the situationcontinue to follow, but as long as no clear hypertensive urgency symptoms develop, treatment likely to be more risk than benefit. Transfer to [place], otherwise as above
--- NOTE | 2023-06-02 18:19 | Billing Data ---
Date of Service June 02, 2023 Coding Level of Care Code 34071 IN/OBS DISCH 30 MIN/LESS
[2023-06-02] MEDS ORDERED: ATORVASTATIN 10 MG TAB PO SCH (21:00)
--- NOTE | 2023-06-03 05:08 | Billing Data ---
Date of Service June 03, 2023 Coding Level of Care Code 14841 INT INP/OBS CARE
[2023-06-04 09:35] LABS: White Blood Count 10.21 K/ul (4.8-10.8)
== END 2023-06-02 17:59 | disposition short-term general hospital (02) | DRG 812 ==
LOC: ED 17:39 → 2N 21:06 → SUATTDRO 21:06 → 2N 22:22